=== PATIENT | male | born 1965 | race American Indian/Alaskan Native ===

== ENCOUNTER 2018-09-17 11:35 | Day surgery (SDC) | payer OTHER ==
--- NOTE | 2018-09-17 16:29 | Event Note ---
Date: 09/17/18 Mr. Schrader is a 53yoM with PMH smoking, DM, GERD, ?CVA 2018, and ?cardiomegaly presenting for elective outpatient colonoscopy. In pre-procedure area, patient was noted be hypoxic to high 80s on room air which improved to mid-90s on 2L NC. Upon further questioning he endorsed PASTOR with any activity beyond ADLs, orthopnea, and edema which were chronic and stable but had never been formally evaluated. He denies chest pain, palpitations, or syncopal episodes. He reported a possible CVA last year and at that time was told his heart was "2 times too big" but had no other details. He was referred for cardiology follow up at that time but did not 2/2 financial and social barriers. On exam, he was in no acute distress with easy work of breathing, lungs were clear, heart sounds were distant but regular, and there was nonpitting edema bilaterally which he stated was at baseline. Given his hypoxia, signs/symptoms concerning for heart failure, and low functional capacity, decision was made to postpone scheduled elective procedure. I advised the patient of my concerns for underlying heart and/or lung disease and my recommendation for hospital medicine consult and potential inpatient admission. The patient verbalized understanding of this but refused further evaluation or inpatient admission. He reported that he had a PCP with the [facility] and could follow with that physician. I again expressed my concerns and he again refused. The patient signed AMA and was d/c'd in stabled condition. Discussed with diet kitchen cook.
== END 2018-09-17 11:36 | disposition home or self-care (01) ==
LOC: GIO 11:35
PROVIDERS: ATTEND Internal Medicine Gastroenterology
DX: R19.5 Other fecal abnormalities (principal); Z53.8 Procedure and treatment not carried out for other reasons; Z79.899 Other long term (current) drug therapy